=== PATIENT | female | born 1960 | race American Indian/Alaskan Native ===

== ENCOUNTER 2019-09-11 08:19 | Emergency (ER) | payer OTHER ==
[2019-09-11] MEDS ORDERED: TORADOL IV ONE (08:43)
--- NOTE | 2019-09-11 08:49 | Emergency Department Report ---
ED Fall HPI - General Chief Complaint: Fall Stated Complaint: FALL INJURY/KNOT ON HEAD Time Seen by Provider: 09/11/19 08:27 Source: patient Mode of arrival: Wheelchair Limitations: No Limitations - History of Present Illness Initial Comments: 59-year-old female the past medical history of breast cancer currently remission for 16 years since the hospital complains of fall injury. Patient was drinking lot of alcohol last night and fell down approximately 10 stairs at home. heard her fall and heard her cry out immediately there for a LOC is not suspected. Patient complains of pain to her neck, left ring finger with deformity, and right wrist. Patient also has noted swelling to the left side of her face. c collar placed patient states she has received a tetanus shot in the last 10 years. - Related Data Allergies Allergy/AdvReac Type Severity Reaction Status Date / Time No Known Allergies Allergy Verified 09/11/19 09:46 ED Review of Systems ROS: Stated complaint: FALL INJURY/KNOT ON HEAD Other details as noted in HPI Comment: All other systems reviewed and negative ED Past Medical Hx - Past Medical History Previous Medical History?: No Hx of Cancer: Yes (breast cancer in remission) - Surgical History Additional [facility]. Left mastectomy - Social History Smoking Status: Never Smoker ED Physical Exam - General Limitations: Other - Other Other exam information: Gen.: No acute distress Head: Left forehead 2 mm superficial abrasion/laceration, left sided facial swelling Eyes: Normal appearance, left eyelid abrasion ENT: Moist mucous membranes Neck: Normal appearance, diffuse midline tenderness but tenderness greatest at the left side of the neck at the trapezius area Chest: Clear to auscultation bilaterally Cardiovascular: Regular rate and rhythm Abdomen: Normal appearance, soft, nontender, no rebound or guarding, normal bowel sounds Back: Normal appearance, nontender Extremity: Deformity noted to right wrist with limited movement. Deformity noted to left fourth finger/ring finger with limited movement. No tenderness to palpation of other extremities. Full range of motion of other extremities. Neuro: Alert oriented 3, clear speech, no focal motor or sensory deficit Psychiatric: Appropriate Skin: No rash. left forehead laceration as above ED Course Vital Signs 09/11/19 09/11/19 09/11/19 08:20 09:33 09:38 Temperature 98.8 F Pulse Rate 67 Respiratory 24 17 20 Rate Blood Pressure 117/61 Blood Pressure [Right] O2 Sat by Pulse 96 Oximetry 09/11/19 10:56 Temperature 98.8 F Pulse Rate 64 Respiratory 14 Rate Blood Pressure Blood Pressure 142/73 [Right] O2 Sat by Pulse 97 Oximetry - Orthopedic Joint Reduction Joint #1 Consent Obtained: verbal consent Time Out Performed: Yes Side: left Joint Reduction Location: finger Analgesia: digital block Local Anesthetic Used: Lidocaine 1% Amount of Anesthetic Used (mls): 5 Shoulder Technique Used (if applicable): traction/counter-traction Technique Used: traction/counter-traction Post-Reduction Neuro Exam: intact Post-Reduction Vascular Exam: intact Post Reduction X-Ray Obtained: Yes Post Reduction X-Ray Results: reduced Splint Applied: Yes Patient Tolerated Procedure: well ED Medical Decision Making - Lab Data Result diagrams: 09/11/19 10:54 - Radiology Data Radiology results: report reviewed CT HEAD WITHOUT CONTRAST INDICATION / CLINICAL INFORMATION: fall down stairs, head injury. TECHNIQUE: All CT scans at this location are performed using CT dose reduction for ALARA by means of automated exposure control. COMPARISON: None available. FINDINGS: HEMORRHAGE: None. EXTRA-AXIAL SPACES: Normal in size and morphology for the patient's age. VENTRICULAR SYSTEM: Normal in size and morphology for the patient's age. CEREBRAL PARENCHYMA: No significant abnormality. No acute territorial infarct. MIDLINE SHIFT OR HERNIATION: None. CEREBELLUM / BRAINSTEM: No significant abnormality. ORBITS: Normal as visualized. SOFT TISSUES of HEAD: Left supraorbital and facial soft tissue swelling/scalp he matoma with foci of embedded gas implying presence of a superficial laceration. No embedded radiopaq ue foreign body is identified. CALVARIUM: No significant abnormality. PARANASAL SINUSES / MASTOID AIR CELLS: Normal as visualized. IMPRESSION: 1. No acute intracranial abnormality. 2. Left scalp/facial soft tissue injury with small hematoma. CT CERVICAL SPINE WITHOUT CONTRAST INDICATION / CLINICAL INFORMATION: fall down stairs, head injury. TECHNIQUE: Axial CT images of the spine were obtained. Sagittal and coronal reformatted images were produced. All CT scans at this location are performed using CT dose reduction for ALARA by means of automated exposure control. COMPARISON: None available. FINDINGS: Acute Fracture(s) or Subluxation: Nondisplaced fracture through the right articular pillar, lamina and spinous process of C7. The fracture does not involve the articular facets. Nondisplaced fracture at the right tip of the bifid C6 spinous process. Normal alignment is maintained. Paraspinal soft tissues: No soft tissue swelling or other acute abnormalities. Additional Findings: No significant additional findings. IMPRESSION: 1. Acute, minimally displaced fracture in the posterior arch of C7 on the right. 2. Nondisplaced fracture of C6 spinous process tip. CT of the facial bones INDICATION: Pain following trauma today FINDINGS: There is soft tissue swelling over the left face as well as air in the soft tissues presumably from laceration. The sinuses are clear with no air-fluid levels. However, on the coronal reconstructions there is a small fracture through the lateral aspect of the left orbital floor. There is very minimal inferior displacement of the left orbital floor with no inferior rectus entrapment seen. The orbital lomas and rim are intact. Associated soft tissue swelling is seen. No maxillary or mandibular fracture. Zygomatic arches intact as well. Orbital contents are intact. There is no intraorbital air seen. IMPRESSION: Small left inferior orbital floor fracture with minimal inferior displacement but no entrapment. Right wrist, 4 views INDICATION: Pain following fall today FINDINGS: There is an impacted, comminuted fracture of the distal radial metaphysis with loss of radial length and positive ulnar variance. The distal ulna is intact. No definite carpal fracture or dislocation. Left hand, 3 views INDICATION: Pain following fall today FINDINGS: There is an oblique fracture through the midportion of the fourth metacarpal without significant distraction or displacement. In addition there is dislocation at the proximal interphalangeal joint of the fourth finger with dorsal displacement of the middle phalanx and overriding. No fracture is seen in this area. The remainder the hand is intact. LEFT FINGER(S) 3 VIEW(S) INDICATION / CLINICAL INFORMATION: 4th finger (ring finger) dislocation s/p reduction COMPARISON: Left hand radiograph from earlier the same day FINDINGS: BONES / JOINT(S): Satisfactory post reduction alignment of the ring finger PIP joint. No fracture at the joint. Minimally displaced, comminuted oblique fourth metacarpal shaft fracture is again noted. CHEST 1 VIEW INDICATION / CLINICAL INFORMATION: left collar bone pain after fall. COMPARISON: None available. FINDINGS: HEART / MEDIASTINUM: Normal cardiomediastinal silhouette allowing for AP technique. LUNGS / PLEURA: No significant pulmonary or pleural abnormality. No pneumothorax. Left clavicle appears intact. No acute bony abnormality is identified. An array of rectangular opacity projecting over the right lung base probably represents an object external to the patient, possibly a pack of gum. IMPRESSION: 1. No acute finding. - Medical Decision Making Presents to the ER with fall. Patient had several fractures including cervical spine fractures. Patient has patient had a Velcro wrist splint placed to the right wrist, ulnar gutter sized boxer splint placed to the left hand. Patient had digital block performed and fourth finger PIP reduction. C-collar remained in place since arrival with C-spine precautions. No neurological findings at this time. Toradol provided for pain. Patient has been accepted by [facility] for ER evaluation. Patient received Toradol for pain. Patient states her tetanus is up to date. Ancef 1 gram provided - Differential Diagnosis fracture, contusion, sprain Critical Care Time: No Critical care attestation.: If time is entered above; I have spent that time in minutes in the direct care of this critically ill patient, excluding procedure time. ED Disposition Clinical Impression: Fall down stairs, C7 cervical fracture, C6 cervical fracture, Fracture of left orbital floor, Distal radius fracture, right, Dislocation of left ring finger Fracture of fourth metacarpal bone Qualifiers: Laterality: left Disposition: DC/TX-65 PSY HOSP/PSY UNIT Is pt being admited?: No Condition: Stable Referrals: PRIMARY CARE,MD [Primary Care Provider] - 3-5 Days Time of Disposition: 10:33 (accepted to [facility] by Dr Henry trauma attending)
--- NOTE | 2019-09-11 09:31 | Cat Scan Report ---
CT HEAD WITHOUT CONTRAST INDICATION / CLINICAL INFORMATION: fall down stairs, head injury. TECHNIQUE: All CT scans at this location are performed using CT dose reduction for ALARA by means of automated e xposure control. COMPARISON: None available. FINDINGS: HEMORRHAGE: None. EXTRA-AXIAL SPACES: Normal in size and morphology for the patient's age. VENTRICULAR SYSTEM: Normal in size and morphology for the patient's age. CEREBRAL PARENCHYMA: No significant abnormality. No acute territorial infarct. MIDLINE SHIFT OR HERNIATION: None. CEREBELLUM / BRAINSTEM: No significant abnormality. ORBITS: Normal as visualized. SOFT TISSUES of HEAD: Left supraorbital and facial soft tissue swelling/scalp hematoma with foci of e mbedded gas implying presence of a superficial laceration. No embedded radiopaque foreign body is taina ntified. CALVARIUM: No significant abnormality. PARANASAL SINUSES / MASTOID AIR CELLS: Normal as visualized. IMPRESSION: 1. No acute intracranial abnormality. 2. Left scalp/facial soft tissue injury with small hematoma. Signer Name: Cesar Bae MD Signed: 09/11/2019 9:27 AM Workstation Name: [id number]
[2019-09-11] MEDS ORDERED: XYLOCAINE 1%/ EPI 1:100,000 INFILTRATI NR (10:00)
[2019-09-11] MEDS ORDERED: XYLOCAINE 1% MPF 5 mL INFILTRATI ONE (10:15)
--- NOTE | 2019-09-11 10:15 | Cat Scan Report ---
CT CERVICAL SPINE WITHOUT CONTRAST INDICATION / CLINICAL INFORMATION: fall down stairs, head injury. TECHNIQUE: Axial CT images of the spine were obtained. Sagittal and coronal reformatted images were produced. Al l CT scans at this location are performed using CT dose reduction for ALARA by means of automated exp osure control. COMPARISON: None available. FINDINGS: Acute Fracture(s) or Subluxation: Nondisplaced fracture through the right articular pillar, lamina an d spinous process of C7. The fracture does not involve the articular facets. Nondisplaced fracture at the right tip of the bifid C6 spinous process. Normal alignment is maintained. Paraspinal soft tissues: No soft tissue swelling or other acute abnormalities. Additional Findings: No significant additional findings. IMPRESSION: 1. Acute, minimally displaced fracture in the posterior arch of C7 on the right. 2. Nondisplaced fracture of C6 spinous process tip. CRITICAL RESULT: Time of Discovery: 8:00 AM Time of Communication: 8:10 AM Licensed Practitioner Receiving Report: Dr. Nisreen Miner Signer Name: Cesar Bae MD Signed: 09/11/2019 10:10 AM Workstation Name: [id number]
--- NOTE | 2019-09-11 10:16 | Cat Scan Report ---
CT of the facial bones INDICATION: Pain following trauma today FINDINGS: There is soft tissue swelling over the left face as well as air in the soft tissues presuma heri from laceration. The sinuses are clear with no air-fluid levels. However, on the coronal reconstr uctions there is a small fracture through the lateral aspect of the left orbital floor. There is very minimal inferior displacement of the left orbital floor with no inferior rectus entrapment seen. The orbital lomas and rim are intact. Associated soft tissue swelling is seen. No maxillary or mandibula r fracture. Zygomatic arches intact as well. Orbital contents are intact. There is no intraorbital ai r seen. IMPRESSION: Small left inferior orbital floor fracture with minimal inferior displacement but no entr apment. All CT scans at this location are performed using CT dose reduction for ALARA by means of automated e xposure control Signer Name: Arnaldo Chicas MD Signed: 09/11/2019 10:11 AM Workstation Name: [id number]
--- NOTE | 2019-09-11 10:20 | XRay Report ---
Right wrist, 4 views INDICATION: Pain following fall today FINDINGS: There is an impacted, comminuted fracture of the distal radial metaphysis with loss of radi al length and positive ulnar variance. The distal ulna is intact. No definite carpal fracture or disl ocation. Signer Name: Arnaldo Chicas MD Signed: 09/11/2019 10:15 AM Workstation Name: [email or web address]
--- NOTE | 2019-09-11 10:21 | XRay Report ---
Left hand, 3 views INDICATION: Pain following fall today FINDINGS: There is an oblique fracture through the midportion of the fourth metacarpal without signif icant distraction or displacement. In addition there is dislocation at the proximal interphalangeal j oint of the fourth finger with dorsal displacement of the middle phalanx and overriding. No fracture is seen in this area. The remainder the hand is intact. Signer Name: Arnaldo Chicas MD Signed: 09/11/2019 10:17 AM Workstation Name: [id number]
[2019-09-11 10:57] VITALS: BP 142/73
--- NOTE | 2019-09-11 11:08 | XRay Report ---
CHEST 1 VIEW INDICATION / CLINICAL INFORMATION: left collar bone pain after fall. COMPARISON: None available. FINDINGS: HEART / MEDIASTINUM: Normal cardiomediastinal silhouette allowing for AP technique. LUNGS / PLEURA: No significant pulmonary or pleural abnormality. No pneumothorax. Left clavicle appears intact. No acute bony abnormality is identified. An array of rectangular opacit y projecting over the right lung base probably represents an object external to the patient, possibly a pack of gum. IMPRESSION: 1. No acute finding. Signer Name: Cesar Bae MD Signed: 09/11/2019 11:03 AM Workstation Name: [id number]
--- NOTE | 2019-09-11 11:10 | XRay Report ---
LEFT FINGER(S) 3 VIEW(S) INDICATION / CLINICAL INFORMATION: 4th finger (ring finger) dislocation s/p reduction COMPARISON: Left hand radiograph from earlier the same day FINDINGS: BONES / JOINT(S): Satisfactory post reduction alignment of the ring finger PIP joint. No fracture at the joint. Minimally displaced, comminuted oblique fourth metacarpal shaft fracture is again noted. Signer Name: Cesar Bae MD Signed: 09/11/2019 11:05 AM Workstation Name: [id number]
[2019-09-11 11:26] LABS: Basophils % (Auto) 0.2 % (0.0-1.8); Hematocrit 41.2 % (30.3-42.9); Hemoglobin 13.7 gm/dl (10.1-14.3); Lymphocytes # (Auto) 0.8 K/mm3 (1.2-5.4); Mean Corpuscular HGB Conc 33 % (30-34); Mean Corpuscular Volume 87 fl (79-97); Monocytes # (Auto) 0.6 K/mm3 (0.0-0.8); Monocytes % (Auto) 4.5 % (0.0-7.3); Platelet Count 227 K/mm3 (140-440); Red Blood Count 4.74 M/mm3 (3.65-5.03); Red Cell Distribution Width 13.3 % (13.2-15.2)
[2019-09-11] MEDS ORDERED: ANCEF/NS 1 GM/50 ML 1 GM/50 ML BAG IV ONE (11:30)
[2019-09-11 11:46] LABS: Alanine Aminotransferase 22 units/L (7-56); Albumin 4.4 g/dL (3.9-5); BUN/Creatinine Ratio 13; Blood Urea Nitrogen 9 mg/dL (7-17); Calcium 8.6 mg/dL (8.4-10.2); Hemolysis Index 8
== END 2019-09-11 11:44 ==
LOC: ED 08:19
DX: S52.501A Unspecified fracture of the lower end of right radius, initial encounter for closed fracture (principal); S02.32XA Fracture of orbital floor, left side, initial encounter for closed fracture; S12.500A Unspecified displaced fracture of sixth cervical vertebra, initial encounter for closed fracture; S12.600A Unspecified displaced fracture of seventh cervical vertebra, initial encounter for closed fracture; S63.255A Unspecified dislocation of left ring finger, initial encounter; Z85.3 Personal history of malignant neoplasm of breast; W10.9XXA Fall (on) (from) unspecified stairs and steps, initial encounter; Y93.89 Activity, other specified; Y92.89 Other specified places as the place of occurrence of the external cause; Y99.8 Other external cause status
CPT/HCPCS: 26700; 29125; 36415; 70450; 70486; 71045; 72125; 73110; 73130; 73140; 80053; 85025; 86850; 86900; 86901; 96365; 96375; 99285; J0690; J1885; 80320; G0480